=== PATIENT | female | born 1990 | race African-American/Black ===

== ENCOUNTER 2018-04-03 13:11 | Emergency (ER) | payer OTHER ==
[2018-04-03 13:35] LABS: BASOPHILS # (AUTO) 0.1 10^3/uL (0.0-0.1); BASOPHILS % (AUTO) 0.8 %; EOSINOPHILS # (AUTO) 0.1 10^3/uL (0.0-0.7); EOSINOPHILS % (AUTO) 1.1 %; HGB - HEMOGLOBIN 12.3 g/dL (12.0-16.0); MEAN CORPUSCULAR HEMOGLOBIN 30.1 pg (27.0-31.0); MEAN CORPUSCULAR HGB CONC 33.1 g/dL (32.0-36.0); MEAN CORPUSCULAR VOLUME 90.8 fL (81.0-99.0); MEAN PLATELET VOLUME 7.4 fL (7.9-10.8); MONOCYTES # (AUTO) 0.6 10^3/uL (0.0-1.0); MONOCYTES % (AUTO) 7.3 %; NEUTROPHILS # (AUTO) 5.6 10^3/uL (1.5-6.6); NEUTROPHILS % (AUTO) 66.8 %; PLT - PLATELET COUNT 323 10^3/uL (130-450); RED CELL DISTRIBUTION WIDTH 13.5 % (12.0-15.0); WHITE BLOOD COUNT 8.4 x10^3/uL (4.8-10.8)
[2018-04-03 13:47] LABS: ALBUMIN 4.2 g/dL (3.2-5.5); ALBUMIN/GLOBULIN RATIO 1.3 (1.0-2.2); BILIRUBIN,TOTAL 0.9 mg/dL (0.2-1.0); CALCIUM 9.1 mg/dL (8.5-10.3); CREATININE 0.6 mg/dL (0.4-1.0); TOTAL PROTEIN 7.5 g/dL (6.7-8.2)
--- NOTE | 2018-04-03 13:53 | ED Physician Documentation ---
PD HPI SYNCOPE - Stated complaint Stated Complaint: NEAR SYNCOPE - Chief complaint Chief Complaint: Neuro - History obtained from History obtained from: Patient - History of Present Illness Witnessed: Witnessed Timing - onset: Today Duration: Minutes (she had been having pelvic pains for few weeks. Had pain today and was feeling lightheaded, felt she was going to faint. Had nausea and worse pain in pelvic area.) Preceding symptoms: Other (pelvic pain, on the right) Associated symptoms: Nausea / vomiting, Abdominal pain. No: Headache, Chest pain Contributing factors: Noxious stimulae. No: Recent med change, Decreased PO intake, Emotional upset Injury occurred: No: Fell, Head injury, Neck injury Similar symptoms before: No diagnosis (has been having pelvic pain, with Dx possibly of endometriosis, but has not had scope. Is on Merina IUD put in about 3-4 months ago.) Review of Systems Constitutional: denies: Fever, Chills, Myalgias Nose: denies: Rhinorrhea / runny nose, Congestion Throat: denies: Sore throat Cardiac: denies: Chest pain / pressure, Palpitations Respiratory: denies: Dyspnea, Cough GI: reports: Abdominal Pain, Nausea. denies: Vomiting, Constipation, Diarrhea, Bloody / black stool : reports: Irregular menses (just spotting at times since IUD). denies: Dysuria, Frequency, Discharge Neurologic: reports: Generalized weakness, Near syncope. 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 REMELT: Endometriosis - Past Surgical History Past Surgical History: Yes HEENT: Tonsil/Adenoidectomy - Present Medications Home Medications: Ambulatory Orders Medication Instructions Recorded Confirmed Naproxen 375 mg PO BID #20 tablet 04/03/18 Ondansetron Odt [Zofran] 4 mg TL Q6H PRN #15 tablet 04/03/18 - Allergies Allergies/Adverse Reactions: Allergies Allergy/AdvReac Type Severity Reaction Status Date / Time sulfamethoxazole Allergy Hives Verified 04/03/18 13:21 [From ] trimethoprim [From ] Allergy Hives Verified 04/03/18 13:21 - Social History Does the pt smoke?: No Smoking Status: Never smoker Does the pt drink ETOH?: Yes Does the pt have substance abuse?: No - Immunizations Immunizations are current?: Yes PD ED PE NORMAL - Vitals Vital signs reviewed: Yes - General General: Alert and oriented X 3, Well developed/nourished - HEENT HEENT: Pharynx benign - Neck Neck: Supple, no meningeal sign, No adenopathy - Cardiac Cardiac: RRR, No murmur - Respiratory Respiratory: Clear bilaterally - Abdomen Abdomen: Normal bowel sounds, Soft, Non distended, No organomegaly, Other ( tender right lower abd/suprapubic area with local guarding. No percussion nor rebound. ) - Female Female : Deferred - Rectal Rectal: Deferred - Derm Derm: Normal color, Warm and dry - Extremities Extremities: No deformity, No tenderness to palpate, No edema, No calf tenderness / cord - Neuro Neuro: Alert and oriented X 3, No motor deficit, Normal speech Results - Vitals Vitals: Vital Signs - 24 hr 04/03/18 04/03/18 13:18 16:17 Temperature 36.4 C L Heart Rate 66 62 Respiratory 15 22 Rate Blood Pressure 132/84 H 106/69 O2 Saturation 100 100 Oxygen O2 Source Room air - EKG (time done) 13:31 Rate: Rate (enter#) (68) Rhythm: NSR [place]: Normal Intervals: Normal [place] QRS: Normal Ischemia: Normal ST segments. No: ST elevation c/w ischemia, ST depression - Labs Labs: Laboratory Tests 04/03/18 04/03/18 04/03/18 13:32 13:32 13:32 WBC 8.4 RBC 4.10 L Hgb 12.3 Hct 37.2 MCV 90.8 MCH 30.1 MCHC 33.1 RDW 13.5 Plt Count 323 MPV 7.4 L Neut # (Auto) 5.6 Lymph # (Auto) 2.0 [place] # (Auto) 0.6 Eos # (Auto) 0.1 Baso # (Auto) 0.1 Absolute Nucleated RBC 0.00 Nucleated RBC % 0.0 ESR Sodium 136 Potassium 3.6 Chloride 104 Carbon Dioxide 27 Anion Gap 5.0 L BUN 12 Creatinine 0.6 Estimated GFR (MDRD) 143 Glucose 85 Calcium 9.1 Total Bilirubin 0.9 AST 15 ALT 18 Alkaline Phosphatase 55 Total Protein 7.5 Albumin 4.2 Globulin 3.3 Albumin/Globulin Ratio 1.3 Lipase 28 TSH 0.59 Urine Color Urine Clarity Urine pH Ur Specific [place] Urine Protein Urine Glucose (UA) Urine Ketones Urine Occult Blood Urine Nitrite Urine Bilirubin Urine Urobilinogen Ur Leukocyte Esterase Ur Microscopic Review Urine Culture Comments Urine HCG, Qual 04/03/18 04/03/18 04/03/18 13:32 13:38 13:38 WBC RBC Hgb Hct MCV MCH MCHC RDW Plt Count MPV Neut # (Auto) Lymph # (Auto) [place] # (Auto) Eos # (Auto) Baso # (Auto) Absolute Nucleated RBC Nucleated RBC % ESR 10 Sodium Potassium Chloride Carbon Dioxide Anion Gap BUN Creatinine Estimated GFR (MDRD) Glucose Calcium Total Bilirubin AST ALT Alkaline Phosphatase Total Protein Albumin Globulin Albumin/Globulin Ratio Lipase TSH Urine Color YELLOW Urine Clarity CLEAR Urine pH 6.0 Ur Specific [place] 1.010 1.010 Urine Protein NEGATIVE Urine Glucose (UA) NEGATIVE Urine Ketones NEGATIVE Urine Occult Blood NEGATIVE Urine Nitrite NEGATIVE Urine Bilirubin NEGATIVE Urine Urobilinogen 0.2 (NORMAL) Ur Leukocyte Esterase NEGATIVE Ur Microscopic Review NOT INDICATED Urine Culture Comments NOT INDICATED Urine HCG, Qual NEGATIVE - Rads (name of study) pelvic U/S Radiology: Prelim report reviewed (2.5 cm cyst on left. physiologic free fluid. No significant findings. ) PD MEDICAL DECISION MAKING - ED course Complexity details: reviewed results, considered differential (given her pain pelvic and near syncope this morning, I am cocnered about bleeding. She is not . Will get U/S to eval for free fluid. Also having pelvic pain generally , so the U/S will be useful evaluation for that as well, though would not be as urgent reason.), d/w patient - Sepsis Event Vital Signs: Vital Signs - 24 hr 04/03/18 04/03/18 13:18 16:17 Temperature 36.4 C L Heart Rate 66 62 Respiratory 15 22 Rate Blood Pressure 132/84 H 106/69 O2 Saturation 100 100 Oxygen O2 Source Room air Departure - Departure Disposition: 01 Home, Self Care Clinical Impression: Near syncope, Pelvic pain Condition: Stable Record reviewed to determine appropriate education?: Yes Instructions: ED Abdominal Pain Unkn Cause, ED Near Syncope Unkn Prescriptions: Naproxen 375 mg PO BID #20 tablet Ondansetron Odt [Zofran] 4 mg TL Q6H PRN #15 tablet PRN Reason: Nausea / Vomiting Comments: The lightheadedness and near fainting likely was a transient drop in blood pressure. This can be from illness or pain response. Your blood count and blood tests are okay. Your ultrasound shows the IUD to be in place. There is an incidental small cyst on the left. There is no signs of pelvic bleeding. Drink lots of fluids. Use some naproxen twice daily for the next 7-10 days to help with pains and cramps. Ondansetron if needed for nausea. Follow-up with your primary care. Discharge Date/Time: 04/03/18 18:39
[2018-04-03] MEDS ORDERED: IBUPROFEN 600 MG TABLET PO STA (14:13)
[2018-04-03 14:14] LABS: HCG UR QUAL NEGATIVE
[2018-04-03 14:21] LABS: BILIRUBIN,URINE NEGATIVE (NEGATIVE); CLARITY,URINE CLEAR (CLEAR); GLUCOSE, URINE (UA) NEGATIVE (NEGATIVE); KETONES,URINE (UA) NEGATIVE (NEGATIVE); LEUKOCYTE ESTERASE, URINE NEGATIVE (NEGATIVE); NITRITE,URINE NEGATIVE (NEGATIVE); OCCULT BLOOD,URINE NEGATIVE (NEGATIVE); PROTEIN,URINE NEGATIVE (NEGATIVE); UROBILINOGEN,URINE 0.2 (NORMAL) E.U./dL (NORMAL)
[2018-04-03 16:18] VITALS: BP 106/69
--- NOTE | 2018-04-03 18:10 | Ultrasound Report ---
Procedure Date: 04/03/2018 Accession Number: [id number] / [id number] Procedure: US - Pelvic w/Transvag+Doppler Ltd CPT Code: FULL RESULT: EXAM: PELVIC ULTRASOUND EXAM DATE: 04/03/2018 05:43 PM. CLINICAL HISTORY: Lower abd pain for few days. COMPARISON: None. TECHNIQUE: Realtime transabdominal pelvic scan performed to identify the uterus and adnexa and as an overview of other pelvic structures, followed by transvaginal scan to provide greater detail of the uterus and adnexa, with static image documentation. FINDINGS: Uterus: 10.5 x 10.0 x 7.0 cm, volume 384.4 cc. Retroverted position. Normal overall size and echotexture. Masses: None. Endometrium: 5 mm. IUD centrally within the uterine cavity. Cervix: Unremarkable. Right Ovary: 3.2 x 2.3 x 1.2 cm, volume 4.6 cc. Normal echotexture and blood flow. Left Ovary: 3.8 x 2.7 x 2.3 cm, volume 12.3 cc. There is a simple 2.5 cm cyst. Free Fluid: Small volume of fluid in the cul-de-sac considered physiologic. Other: None. IMPRESSION: 1. Physiologic 2.5 cm left ovarian cyst. 2. Normal, retroverted uterus noting satisfactory IUD placement. RADIA
== END 2018-04-03 18:39 | disposition home or self-care (01) ==
LOC: ED 13:11
DX: R55 Syncope and collapse (principal); R10.2 Pelvic and perineal pain; R11.2 Nausea with vomiting, unspecified; N83.202 Unspecified ovarian cyst, left side; Z97.5 Presence of (intrauterine) contraceptive device
CPT/HCPCS: 36415; 76830; 76856; 80053; 81003; 81025; 83690; 84443; 85025; 85651; 93005; 93976; 99283; 99284; A9270; 81001; 87086

== ENCOUNTER 2019-02-03 08:46 | Emergency (ER) | payer OTHER ==
[2019-02-03 08:54] VITALS: BP 130/75
--- NOTE | 2019-02-03 08:58 | ED Physician Documentation ---
PD HPI URI - Stated complaint Stated Complaint: FLU LIKE SX - Chief complaint Chief Complaint: General - History obtained from History obtained from: Patient - History of Present Illness Timing - onset: How many days ago (4) Timing duration: Days (4) Timing details: Gradual onset, Still present Associated symptoms: Fever, Ear pain, Nasal congestion, Rhinorrhea, Sore throat, Dry cough Contributing factors: Sick contact Improves by: Rest, Medication Similar symptoms before: Diagnosis (strep) Recently seen: Not recently seen - Additional information Additional information: 33-year-old female who has had her tonsils out more than 15 years ago has developed a sore throat fever congestion and ear pain over the past 4 days. Review of Systems Constitutional: reports: Fever Eyes: denies: Decreased vision Ears: reports: Ear pain Nose: reports: Rhinorrhea / runny nose, Congestion Throat: reports: Sore throat Cardiac: denies: Chest pain / pressure, Palpitations Respiratory: reports: Cough. 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 - Past Surgical History Past Surgical History: Yes HEENT: Tonsil/Adenoidectomy - Present Medications Home Medications: Ambulatory Orders Medication Instructions Recorded Confirmed Amox/Clav 875/125 [Augmentin] 1 each PO Q12H #20 tablet 02/03/19 - Allergies Allergies/Adverse Reactions: Allergies Allergy/AdvReac Type Severity Reaction Status Date / Time sulfamethoxazole Allergy Hives Verified 04/03/18 13:21 [From ] trimethoprim [From ] Allergy Hives Verified 02/03/19 08:54 - Social History Does the pt smoke?: No Smoking Status: Never smoker Does the pt drink ETOH?: Yes Does the pt have substance abuse?: No - Immunizations Immunizations are current?: Yes PD ED PE NORMAL - Vitals Vital signs reviewed: Yes (normal) - General General: Alert and oriented X 3, No acute distress, Well developed/nourished, Other (resonance to the phonation ) - HEENT HEENT: Atraumatic, PERRL, EOMI, Other (The left TM is inflamed with retained landmarks the right is much less involved. The pharynx is with erythema and swelling to the uvula. ) - Neck Neck: Supple, no meningeal sign, No bony TTP, Other (tender submandibular adenopathy bilat) - Cardiac Cardiac: RRR, No murmur - Respiratory Respiratory: No respiratory distress, Clear bilaterally - Abdomen Abdomen: Soft, Non tender - Back Back: No CVA TTP, No spinal TTP - Derm Derm: Normal color, Warm and dry, No rash - Extremities Extremities: No deformity, No edema - Neuro Neuro: Alert and oriented X 3, security sales consultant 2-12 intact, No motor deficit, No sensory deficit, Normal speech Eye Opening: Spontaneous Motor: Obeys Commands Verbal: Oriented GCS Score: 15 - Psych Psych: Normal mood, Normal affect Results - Vitals Vitals: Vital Signs - 24 hr 02/03/19 08:53 Temperature 36.4 C L Heart Rate 67 Respiratory 18 Rate Blood Pressure 130/75 O2 Saturation 99 Oxygen O2 Source Room air - Labs Labs: Laboratory Tests 02/03/19 09:01 Group A Strep Rapid Negative PD MEDICAL DECISION MAKING - ED course Complexity details: considered differential, d/w patient ED course: 29 y/o female with sore throat and otitis is given decadron and we will start her on some augmentin. Departure - Departure Disposition: 01 Home, Self Care Clinical Impression: Otitis media Qualifiers: Otitis media type: suppurative Chronicity: acute Laterality: left Recurrence: not specified as recurrent Spontaneous tympanic membrane rupture: without spontaneous rupture Qualified Code(s): H66.002 - Acute suppurative otitis media without spontaneous rupture of ear drum, left ear Condition: Stable Instructions: ED Otitis Media Acute Adult Follow-Up: [facility] [Provider Group] Prescriptions: Amox/Clav 875/125 [Augmentin] 1 each PO Q12H #20 tablet Discharge Date/Time: 02/03/19 09:42
[2019-02-03] MEDS ORDERED: DEXAMETHASONE 10 MG/ML VIAL PO STA (09:05)
[2019-02-03] MEDS ORDERED: CHERRY SYRUP 10 ML UDC PO ONE (09:05)
== END 2019-02-03 09:42 | disposition home or self-care (01) ==
LOC: ED 08:46
DX: H66.002 Acute suppurative otitis media without spontaneous rupture of ear drum, left ear (principal)
CPT/HCPCS: 87070; 87430; 99283; A9270

== ENCOUNTER 2019-07-11 08:38 | Outpatient (CLI) | payer OTHER ==
[2019-07-11 09:09] LABS: BASOPHILS % (AUTO) 0.6 %; EOSINOPHILS # (AUTO) 0.1 10^3/uL (0.0-0.7); LYMPHOCYTES # (AUTO) 1.8 10^3/uL (1.5-3.5); LYMPHOCYTES % (AUTO) 36.3 %; MEAN CORPUSCULAR HEMOGLOBIN 29.9 pg (27.0-31.0); MEAN CORPUSCULAR HGB CONC 33.2 g/dL (32.0-36.0); MEAN PLATELET VOLUME 9.7 fL (7.9-10.8); MONOCYTES # (AUTO) 0.4 10^3/uL (0.0-1.0); MONOCYTES % (AUTO) 8.4 %; NEUTROPHILS # (AUTO) 2.6 10^3/uL (1.5-6.6); NEUTROPHILS % (AUTO) 52.5 %; PLT - PLATELET COUNT 363 10^3/uL (130-450); RED BLOOD COUNT 4.01 10^6/uL (4.20-5.40); RED CELL DISTRIBUTION WIDTH 12.9 % (12.0-15.0)
[2019-07-11 09:43] LABS: HCG UR QUAL NEGATIVE
== END 2019-07-11 08:39 | disposition home or self-care (01) ==
LOC: LAB 08:38
PROVIDERS: ATTEND Obstetrics & Gynecology
DX: Z01.812 Encounter for preprocedural laboratory examination (principal); N80.9 Endometriosis, unspecified
CPT/HCPCS: 36415; 81025; 85025; 86900; 86901

== ENCOUNTER 2019-07-13 06:11 | Inpatient (IN) | payer OTHER ==
[2019-07-13] MEDS ORDERED: CEFAZOLIN SODIUM IN 0.9 % NACL 2 GM/100 ML BAG IV ONE (06:41)
[2019-07-13] MEDS ORDERED: ACETAMINOPHEN 1,000 MG/100 ML 100 ML IV ONE ×2 (06:43→18:36)
[2019-07-13] MEDS ORDERED: GABAPENTIN 400 MG CAPSULE ONE (06:43)
[2019-07-13] MEDS ORDERED: LACTATED RINGERS 1,000 ML IV ONE ×3 (06:48→12:57)
[2019-07-13 06:52] LABS: HCG UR QUAL NEGATIVE
[2019-07-13] MEDS ORDERED: BUPIVACAINE 0.25% PF 30 ML VIAL SUBQ ONE ×2 (08:05)
[2019-07-13] MEDS ORDERED: METHYLENE BLUE 0.5% 50 MG/10 ML AMPULE IV ONE (11:17)
[2019-07-13] MEDS: HYDROmorphone 1 MG/ML CARPUJECT ONE ×2 (12:40→12:50)
--- NOTE | 2019-07-13 12:45 | XRAY Report ---
Reason: MISSING RAYTEC Procedure Date: 07/13/2019 Accession Number: [id number] / [id number] Procedure: XR - Pelvis 1 View CPT Code: FULL RESULT: EXAM: PELVIS RADIOGRAPHY EXAM DATE: 07/13/2019 12:06 PM. CLINICAL HISTORY: MISSING RAYTEC. COMPARISON: None. TECHNIQUE: 1 view. FINDINGS: Bones: Normal. No fracture or bone lesion. Joints: The visualized hip, pubis symphysis, and sacroiliac joints are preserved. No subluxation. Soft Tissues: Left flank soft tissue emphysema. Left pelvic retroperitoneal emphysema. Possible Cruz catheter. IMPRESSION: No radiopaque foreign body RADIA
[2019-07-13] MEDS ORDERED: ONDANSETRON 4 MG/2 ML VIAL IVP PRN (14:43)
[2019-07-13] MEDS ORDERED: oxyCODONE 5 MG TABLET PO PRN (14:43)
[2019-07-13] MEDS ORDERED: HYDROmorphone 0.5 MG/0.5 ML SYRINGE IVP PRN (14:43)
[2019-07-13] MEDS: KETOROLAC 30 MG/ML VIAL IVP SCH ×2 (15:17→21:35)
[2019-07-13] MEDS: LACTATED RINGERS 1,000 ML IV SCH (15:18)
[2019-07-13] MEDS ORDERED: SODIUM CHLORIDE FLUSH 0.9% 10 ML SYRINGE IVP PRN (15:19)
[2019-07-13] MEDS: ACETAMINOPHEN 500 MG TABLET PO SCH ×2 (15:25→21:35)
[2019-07-13] MEDS: SODIUM CHLORIDE FLUSH 0.9% 10 ML SYRINGE IVP SCH (16:42)
[2019-07-13] MEDS ORDERED: MIDAZOLAM 2 MG/2 ML VIAL IVP ONE (18:36)
[2019-07-13] MEDS ORDERED: DEXAMETHASONE 4 MG/ML VIAL IVP ONE (18:36)
[2019-07-13] MEDS ORDERED: fentaNYL 250 MCG/5 ML VIAL IVP ONE (18:36)
[2019-07-13] MEDS ORDERED: HYDROmorphone 1 MG/ML CARPUJECT IVP ONE (18:36)
[2019-07-13] MEDS ORDERED: PROPOFOL 200 MG/20 ML VIAL IVP ONE (18:36)
[2019-07-13] MEDS ORDERED: ONDANSETRON 4 MG/2 ML VIAL IVP ONE (18:36)
[2019-07-13] MEDS ORDERED: ROCURONIUM 50 MG/5 ML VIAL IVP ONE (18:36)
[2019-07-13] MEDS ORDERED: LIDOCAINE-MPF 2% 5 ML VIAL IM ONE (18:36)
[2019-07-13] MEDS: DOCUSATE SODIUM 100 MG CAPSULE PO SCH (21:34)
[2019-07-14] MEDS: SODIUM CHLORIDE FLUSH 0.9% 10 ML SYRINGE IVP SCH ×2 (00:43→09:22)
[2019-07-14] MEDS: LACTATED RINGERS 1,000 ML IV SCH (00:43)
[2019-07-14] MEDS: ACETAMINOPHEN 500 MG TABLET PO SCH ×2 (03:05→09:21)
[2019-07-14] MEDS: KETOROLAC 30 MG/ML VIAL IVP SCH ×2 (03:06→09:22)
--- NOTE | 2019-07-14 07:09 | PROVIDER PROGRESS NOTE ---
Subjective - Prog Note Date Prog Note Date: 07/14/19 Prog Note Time: 07:10 - Subjective Subjective: Doing very well. Reports pain well controlled with toradol and tylenol overnight. Denies n/v. Tolerated regular diet last night. Ambulated x 1 without difficulty. Voiding to sanchez overnight. Not yet passing flatus. No acute concerns. Objective - Vital Signs/Intake & Output Vital Signs: Vital Signs x48h Temp Pulse Pulse Resp BP Pulse Ox 07/14/19 05:10 37 C 76 18 123/61 95 07/14/19 00:10 37.3 C 81 20 121/66 97 Intake & Output: Intake & Output 07/11/19 07/12/19 07/13/19 07/14/19 23:59 23:59 23:59 23:59 Intake Total 2530 1141.667 Output Total 3025 875 Balance -495 266.667 - Objective General Appearance: positive: No acute distress Abdomen: positive: No distention (Abdo: soft, appropriately tender without rebound or guarding. Port sites c/d/i, skin adhesive in place.), Tenderness - Lab Results Other Labs: Lab Results x24hrs 07/13/19 Range/Units 06:50 Blood Type O POSITIVE Antibody Screen NEGATIVE Assessment/Plan - Problem List (1) Postoperative state Impression: POD#1 from LAVH/BS/cystoscopy. Recovering well. VS wnl, UOP 1.7 ml/kg/h since midnight. Exam benign. Plan: -sanchez catheter out this AM, DTV in 4 hours -transition toradol to ibuprofen -home today if voiding spontaneously, ambulating, and pain continues to be well controlled
--- NOTE | 2019-07-14 07:16 | DISCHARGE SUMMARY ---
Discharge Summary Admit Date: 07/13/19 Discharge Date: 07/14/19 Discharging Provider: Camryn Cook Code Status: Attempt Resuscitation Condition at Discharge: Good Discharge Disposition: 01 Home, Self Care - DIAGNOSES Admission Diagnoses: chronic pelvic pain Discharge Diagnoses with Status of Each Condition: chronic pelvic pain, s/p hysterectomy - HPI History of Present Illness: Patient was admitted for planned hysterectomy due to chronic pelvic pain. - HOSPITAL COURSE Hospital Course: Patient underwent uncomplicated LAVH/BS/cystoscopy. On POD#1 her sanchez catheter was removed. She remained afebrile throughout her hospital stay. At the time of discharge, she was ambulating, voiding spontaneously, and pain was well controlled with oral medications. She was discharged home with close interval follow up. - ALLERGIES Allergies/Adverse Reactions: Allergies Allergy/AdvReac Type Severity Reaction Status Date / Time sulfamethoxazole Allergy Hives Verified 04/03/18 13:21 [From ] trimethoprim [From ] Allergy Hives Verified 02/03/19 08:54 - MEDICATIONS Home Medications: Ambulatory Orders Medication Instructions Recorded Confirmed Melatonin 1 mg PO QPM PRN 07/13/19 07/13/19 Norethindrone-E.estradiol-Iron 1 tab PO DAILY 07/13/19 07/13/19 [Junel Fe 1.5 mg-30 Mcg Tablet] - PHYSICAL EXAM AT DISCHARGE General Appearance: positive: No acute distress Abdomen: positive: No distention, Tenderness - QUALITY (Female Hip Fx Only) Was patient sent home on osteoporosis medication?: No - FOLLOW UP Follow Up: Follow up at [facility] with Dr. Cook as scheduled. - TIME SPENT Time Spent in Discharge (Minutes): 20
[2019-07-14 07:36] LABS: BASOPHILS % (AUTO) 0.2 %; EOSINOPHILS % (AUTO) 0.2 %; HGB - HEMOGLOBIN 9.4 g/dL (12.0-16.0); LYMPHOCYTES # (AUTO) 2.5 10^3/uL (1.5-3.5); LYMPHOCYTES % (AUTO) 28.2 %; MEAN CORPUSCULAR HEMOGLOBIN 29.4 pg (27.0-31.0); MEAN CORPUSCULAR HGB CONC 32.4 g/dL (32.0-36.0); MEAN CORPUSCULAR VOLUME 90.6 fL (81.0-99.0); MEAN PLATELET VOLUME 9.4 fL (7.9-10.8); MONOCYTES # (AUTO) 0.9 10^3/uL (0.0-1.0); MONOCYTES % (AUTO) 10.2 %; NEUTROPHILS # (AUTO) 5.4 10^3/uL (1.5-6.6); NEUTROPHILS % (AUTO) 60.7 %; PLT - PLATELET COUNT 309 10^3/uL (130-450); RED CELL DISTRIBUTION WIDTH 13.1 % (12.0-15.0); WHITE BLOOD COUNT 8.8 x10^3/uL (4.8-10.8)
[2019-07-14] MEDS: DOCUSATE SODIUM 100 MG CAPSULE PO SCH (09:21)
[2019-07-14 10:56] VITALS: BP 124/85
== END 2019-07-14 11:18 | disposition home or self-care (01) | DRG 743 ==
LOC: MS2 06:11
PROVIDERS: ADMIT Obstetrics & Gynecology; ATTEND Obstetrics & Gynecology
PROC: 0UT7FZZ Resection of Bilateral Fallopian Tubes, Via Natural or Artificial Opening With Percutaneous Endoscopic Assistance (ICD-10-PCS; 2019-07-13)
PROC: 0UT9FZZ Resection of Uterus, Via Natural or Artificial Opening With Percutaneous Endoscopic Assistance (ICD-10-PCS; principal; 2019-07-13 07:30)
DX: N80.3 Endometriosis of pelvic peritoneum (principal); Z87.42 Personal history of other diseases of the female genital tract
CPT/HCPCS: 36415; 72170; 81025; 85025; 86850; 86900; 86901; 88307; A9270; J0131; J0690; J1170; J3010; J7120; 85027

== ENCOUNTER 2020-06-22 15:27 | Emergency (ER) | payer OTHER ==
[2020-06-22 15:35] VITALS: BP 136/93
--- NOTE | 2020-06-22 15:47 | ED Physician Documentation ---
History of Present Illness - Stated complaint Stated Complaint: CP - Chief complaint Chief Complaint: Cardiac - Additonal information Additional information: 30-year-old female presents to the emergency department for evaluation of 3 days of left-sided chest pain. Chest pain began in the midsternal area gated to her left shoulder. The pain is worse when she takes a deep breath but she denies that it gets worse with any exertion. She has had no diaphoresis nausea or vomiting. She does have an extensive family history of coronary artery disease in parents and older siblings. No history of sudden cardiac under the age of 50. Patient is not a smoker. No history of high blood pressure or diabetes. She denies any unilateral leg swelling. She does not take control. She did have a hysterectomy approximately 1 year ago for severe endometriosis.No cough, no fevers. Review of Systems Nose: denies: Rhinorrhea / runny nose, Congestion Throat: denies: Oral lesions / sores, Swollen tonsils, Swallowed foreign body Cardiac: reports: Chest pain / pressure. denies: Palpitations, Pedal edema, Calf pain Respiratory: denies: Dyspnea, Cough, Hemoptysis, Wheezing GI: denies: Abdominal Pain, Abdominal Swelling, Nausea, Vomiting, Constipation, Diarrhea : denies: Dysuria, Frequency, Hesitancy Skin: denies: Rash, Lesions, Laceration (s) Musculoskeletal: denies: Neck pain, Back pain, Joint pain, Extremity swelling Neurologic: reports: Headache. 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 : None HEENT: Chronic vision loss Psych: None Musculoskeletal: None Derm: None - Past Surgical History Past Surgical History: Yes /GENERAL UTILITY WORKER: Other HEENT: Tonsil/Adenoidectomy - Present Medications Home Medications: Ambulatory Orders Medication Instructions Recorded Confirmed Melatonin 1 mg PO QPM PRN 07/13/19 07/13/19 Norethindrone-E.estradiol-Iron 1 tab PO DAILY 07/13/19 07/13/19 [ Fe 1.5 mg-30 Mcg Tablet] - Allergies Allergies/Adverse Reactions: Allergies Allergy/AdvReac Type Severity Reaction Status Date / Time sulfamethoxazole Allergy Hives Verified 06/22/20 15:35 [From ] trimethoprim [From ] Allergy Hives Verified 06/22/20 15:35 - Social History Does the pt smoke?: No Smoking Status: Never smoker Does the pt drink ETOH?: Yes Does the pt have substance abuse?: No - Immunizations Immunizations are current?: Yes PD ED PE NORMAL - General General: Alert and oriented X 3, No acute distress - HEENT HEENT: Atraumatic, EOMI - Neck Neck: Supple, no meningeal sign, No adenopathy, Thyroid normal - Cardiac Cardiac: RRR, No murmur, No gallop, Strong equal pulses (radila/pedal 2+ ) - Respiratory Respiratory: No respiratory distress, Clear bilaterally - Abdomen Abdomen: Normal bowel sounds, Soft, Non tender, Non distended - Back Back: No: No CVA TTP - Derm Derm: Normal color, Warm and dry, No rash - Extremities Extremities: No deformity, No tenderness to palpate, Normal ROM s pain - Neuro Neuro: Alert and oriented X 3, drug abuse technician 2-12 intact, No motor deficit, No sensory deficit, Normal speech Eye Opening: Spontaneous Motor: Obeys Commands Verbal: Oriented GCS Score: 15 Results - Vitals Vitals: Vital Signs - 24 hr 06/22/20 15:30 Temperature 36.9 C Heart Rate 92 Respiratory 14 Rate Blood Pressure 136/93 H O2 Saturation 100 Oxygen O2 Source Room air - EKG (time done) 1534 Rate: Rate (enter#) (85) Rhythm: NSR [place]: Normal Intervals: Normal [place] QRS: Normal Ischemia: Normal ST segments Compare to prior EKG: Old EKG unavailable Computer interpretation: Agree with computer - Labs Labs: Laboratory Tests 06/22/20 06/22/20 06/22/20 15:45 15:45 15:45 WBC 7.8 RBC 4.13 L Hgb 12.3 Hct 37.2 MCV 90.1 MCH 29.8 MCHC 33.1 RDW 12.9 Plt Count 372 MPV 9.0 Neut # (Auto) 4.4 Lymph # (Auto) 2.5 [place] # (Auto) 0.7 Eos # (Auto) 0.2 Baso # (Auto) 0.0 Absolute Nucleated RBC 0.00 Nucleated RBC % 0.0 Sodium 138 Potassium 3.6 Chloride 104 Carbon Dioxide 27 Anion Gap 7.0 BUN 14 Creatinine 0.6 Estimated GFR (MDRD) 141 Glucose 92 Calcium 9.2 Total Bilirubin 0.4 AST 13 ALT 17 Alkaline Phosphatase 79 Troponin I High Sens < 2.3 L Total Protein 8.2 Albumin 4.6 Globulin 3.6 Albumin/Globulin Ratio 1.3 Lipase 30 Urine Color Urine Clarity Urine pH Ur Specific [place] Urine Protein Urine Glucose (UA) Urine Ketones Urine Occult Blood Urine Nitrite Urine Bilirubin Urine Urobilinogen Ur Leukocyte Esterase Ur Microscopic Review Urine Culture Comments 06/22/20 15:50 WBC RBC Hgb Hct MCV MCH MCHC RDW Plt Count MPV Neut # (Auto) Lymph # (Auto) [place] # (Auto) Eos # (Auto) Baso # (Auto) Absolute Nucleated RBC Nucleated RBC % Sodium Potassium Chloride Carbon Dioxide Anion Gap BUN Creatinine Estimated GFR (MDRD) Glucose Calcium Total Bilirubin AST ALT Alkaline Phosphatase Troponin I High Sens Total Protein Albumin Globulin Albumin/Globulin Ratio Lipase Urine Color YELLOW Urine Clarity CLEAR Urine pH 6.0 Ur Specific [place] >=1.030 H Urine Protein NEGATIVE Urine Glucose (UA) NEGATIVE Urine Ketones NEGATIVE Urine Occult Blood NEGATIVE Urine Nitrite NEGATIVE Urine Bilirubin NEGATIVE Urine Urobilinogen 1 (NORMAL) Ur Leukocyte Esterase NEGATIVE Ur Microscopic Review NOT INDICATED Urine Culture Comments NOT INDICATED - Rads (name of study) CXR Radiology: Final report received (no acute cardiopulmonary process) PD MEDICAL DECISION MAKING - ED course Complexity details: reviewed results, considered differential, d/w patient ED course: 30-year-old female presents to the emergency department for evaluation of 3 days left-sided chest pain. On exam it is somewhat reproducible with deep palpation. She did express that it hurts somewhat to take a deep breath however by PERC and Wells criteria I do not have suspicion that this is a pulmonary embolus. Her EKG is nonischemic. High-sensitivity troponin is negative. Chest x-ray shows no focal opacities or findings of a pneumothorax. her exam is not c/w chf. At this time I have advised close observation and follow-up with her primary care doctor. She appears remarkably well with normal vital signs. Advised to return to the emergency department for dyspnea, leg swelling, syncope or if her symptoms fail to improve. Departure - Departure Disposition: 01 Home, Self Care Clinical Impression: Chest pain Qualifiers: Chest pain type: chest pain on breathing Qualified Code(s): R07.1 - Chest pain on breathing; R07.81 - Pleurodynia Condition: Stable Record reviewed to determine appropriate education?: Yes Instructions: ED Chest Pain NonCardiac Follow-Up: LEXUS BARONE MD [Primary Care Provider] - Comments: Today your chest x-ray, labs and EKG are all essentially normal. I would recomm end very close follow-up with your primary care doctor but at this time I do not feel that the cause of your pain is coming from your heart. If you feel that your symptoms are not improving, you are severely short of breath, you develop any fevers feel faint or have fainting episodes then please return immediately to the emergency department
[2020-06-22 15:51] LABS: BASOPHILS % (AUTO) 0.4 %; EOSINOPHILS # (AUTO) 0.2 10^3/uL (0.0-0.7); EOSINOPHILS % (AUTO) 2.1 %; HGB - HEMOGLOBIN 12.3 g/dL (12.0-16.0); LYMPHOCYTES # (AUTO) 2.5 10^3/uL (1.5-3.5); LYMPHOCYTES % (AUTO) 31.6 %; MEAN CORPUSCULAR HEMOGLOBIN 29.8 pg (27.0-31.0); MEAN CORPUSCULAR HGB CONC 33.1 g/dL (32.0-36.0); MEAN CORPUSCULAR VOLUME 90.1 fL (81.0-99.0); MONOCYTES # (AUTO) 0.7 10^3/uL (0.0-1.0); MONOCYTES % (AUTO) 8.6 %; NEUTROPHILS # (AUTO) 4.4 10^3/uL (1.5-6.6); PLT - PLATELET COUNT 372 10^3/uL (130-450); RED BLOOD COUNT 4.13 10^6/uL (4.20-5.40); RED CELL DISTRIBUTION WIDTH 12.9 % (12.0-15.0); WHITE BLOOD COUNT 7.8 x10^3/uL (4.8-10.8)
--- NOTE | 2020-06-22 16:02 | XRAY Report ---
PROCEDURE: Chest 1 View X-Ray INDICATIONS: Chest Pain TECHNIQUE: One view of the chest was acquired. COMPARISON: None FINDINGS: Surgical changes and devices: None. Lungs and pleura: No pleural effusions or pneumothorax. Lungs are clear. Mediastinum: Mediastinal contours appear normal. Heart size is normal. Bones and chest wall: No suspicious bony lesions. Overlying soft tissues appear unremarkable. IMPRESSION: Normal chest radiograph. Reviewed by: Ab Steward MD on 06/22/2020 4:00 PM PDT Approved by: Ab Steward MD on 06/22/2020 4:00 PM PDT Station ID: [id number]
[2020-06-22 16:04] LABS: ALBUMIN 4.6 g/dL (3.2-5.5); ALBUMIN/GLOBULIN RATIO 1.3 (1.0-2.2); BILIRUBIN,TOTAL 0.4 mg/dL (0.2-1.0); CALCIUM 9.2 mg/dL (8.5-10.3); CREATININE 0.6 mg/dL (0.4-1.0); TOTAL PROTEIN 8.2 g/dL (6.7-8.2)
[2020-06-22 16:05] LABS: BILIRUBIN,URINE NEGATIVE (NEGATIVE); GLUCOSE, URINE (UA) NEGATIVE (NEGATIVE); KETONES,URINE (UA) NEGATIVE (NEGATIVE); LEUKOCYTE ESTERASE, URINE NEGATIVE (NEGATIVE); NITRITE,URINE NEGATIVE (NEGATIVE); OCCULT BLOOD,URINE NEGATIVE (NEGATIVE); PROTEIN,URINE NEGATIVE (NEGATIVE); UROBILINOGEN,URINE 1 (NORMAL) E.U./dL (NORMAL)
[2020-06-22 16:08] LABS: CLARITY,URINE CLEAR (CLEAR)
== END 2020-06-22 16:57 | disposition home or self-care (01) ==
LOC: ED 15:27
DX: R07.1 Chest pain on breathing (principal); R07.81 Pleurodynia; Z82.49 Family history of ischemic heart disease and other diseases of the circulatory system
CPT/HCPCS: 36415; 71045; 80053; 81001; 81003; 83690; 84484; 85025; 87086; 93005; 99284

== ENCOUNTER 2020-07-06 14:16 | Emergency (ER) | payer OTHER ==
[2020-07-06 14:47] LABS: BASOPHILS % (AUTO) 0.5 %; EOSINOPHILS # (AUTO) 0.2 10^3/uL (0.0-0.7); EOSINOPHILS % (AUTO) 2.6 %; HGB - HEMOGLOBIN 11.9 g/dL (12.0-16.0); LYMPHOCYTES # (AUTO) 2.6 10^3/uL (1.5-3.5); LYMPHOCYTES % (AUTO) 33.5 %; MEAN CORPUSCULAR HEMOGLOBIN 30.1 pg (27.0-31.0); MEAN CORPUSCULAR HGB CONC 33.1 g/dL (32.0-36.0); MEAN CORPUSCULAR VOLUME 91.1 fL (81.0-99.0); MEAN PLATELET VOLUME 9.1 fL (7.9-10.8); MONOCYTES # (AUTO) 0.8 10^3/uL (0.0-1.0); NEUTROPHILS # (AUTO) 4.1 10^3/uL (1.5-6.6); NEUTROPHILS % (AUTO) 53.1 %; PLT - PLATELET COUNT 368 10^3/uL (130-450); RED BLOOD COUNT 3.95 10^6/uL (4.20-5.40); RED CELL DISTRIBUTION WIDTH 12.9 % (12.0-15.0); WHITE BLOOD COUNT 7.7 x10^3/uL (4.8-10.8)
[2020-07-06 14:59] LABS: ALBUMIN 4.2 g/dL (3.2-5.5); ALBUMIN/GLOBULIN RATIO 1.2 (1.0-2.2); BILIRUBIN,TOTAL 0.4 mg/dL (0.2-1.0); CALCIUM 9.4 mg/dL (8.5-10.3); CREATININE 0.8 mg/dL (0.4-1.0); TOTAL PROTEIN 7.6 g/dL (6.7-8.2)
[2020-07-06] MEDS ORDERED: KETOROLAC 30 MG/ML VIAL IM STA (15:48)
--- NOTE | 2020-07-06 15:51 | ED Physician Documentation ---
History of Present Illness - Stated complaint Stated Complaint: CHEST TIGHTNESS/DIZZY - Chief complaint Chief Complaint: Cardiac - Additonal information Additional information: [age]-year-old female presents the emergency department for chief complaint of chest pain. She Anil describes it as substernal and pressure-like but nonradiating. She was seen for similar on 22 June with a negative work-up. She reports that since being seen she is continued to intermittently have the pain. It is not exertional. She has had no nausea or vomiting. She is not a smoker. She does not have any history of high blood pressure. There is however a significant family history of coronary artery disease in her parents. This pain is easily reproducible with light palpation on the anterior chest. Her EKG today is sinus rhythm without any ischemic changes and is unchanged from the earlier visit. She denies fevers shortness of breath cough leg swelling, recent travel, any history of DVT or cancer Review of Systems Constitutional: denies: Fever, Chills Eyes: denies: Loss of vision Ears: reports: Reviewed and negative Nose: reports: Reviewed and negative Throat: reports: Reviewed and negative Cardiac: reports: Chest pain / pressure. 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: Endometriosis : None HEENT: Chronic vision loss Psych: None Musculoskeletal: None Derm: None - Past Surgical History Past Surgical History: Yes /ENVIRONMENTAL SERVICES FLOOR TECH: Other HEENT: Tonsil/Adenoidectomy - Present Medications Home Medications: Ambulatory Orders Medication Instructions Recorded Confirmed Melatonin 1 mg PO QPM PRN 07/13/19 07/13/19 Norethindrone-E.estradiol-Iron 1 tab PO DAILY 07/13/19 07/13/19 [June Fe 1.5 mg-30 Mcg Tablet] Ibuprofen [Motrin] 600 mg PO Q6H PRN #30 tab 07/06/20 - Allergies Allergies/Adverse Reactions: Allergies Allergy/AdvReac Type Severity Reaction Status Date / Time sulfamethoxazole Allergy Hives Verified 07/06/20 14:19 [From ] trimethoprim [From ] Allergy Hives Verified 07/06/20 14:19 - Social History Does the pt smoke?: No Smoking Status: Never smoker Does the pt drink ETOH?: Yes Does the pt have substance abuse?: No - Immunizations Immunizations are current?: Yes PD ED PE NORMAL - General General: Alert and oriented X 3, No acute distress, Well developed/nourished - HEENT HEENT: PERRL, Ears normal - Neck Neck: Supple, no meningeal sign, No bony TTP, No adenopathy - Cardiac Cardiac: RRR, No murmur, No gallop, No rub, Strong equal pulses, Other (pain reproduced with palpation over hte anterior chest and sternum) - Respiratory Respiratory: No respiratory distress - Abdomen Abdomen: Normal bowel sounds, Soft, Non tender, Non distended - Back Back: No CVA TTP - Derm Derm: Normal color, Warm and dry, No rash - Extremities Extremities: No deformity - Neuro Neuro: Alert and oriented X 3, 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, No motor deficit Eye Opening: Spontaneous Motor: Obeys Commands Verbal: Oriented GCS Score: 15 Results - Vitals Vitals: Vital Signs - 24 hr 07/06/20 07/06/20 14:19 15:41 Temperature 36.9 C 36.8 C Heart Rate 78 67 Respiratory 16 20 Rate Blood Pressure 152/89 H 122/85 H O2 Saturation 100 100 Oxygen O2 Source Room air - EKG (time done) 1426 Rate: Rate (enter#) (73) Rhythm: NSR [place]: Normal Intervals: Normal ND QRS: Normal Ischemia: Normal ST segments Compare to prior EKG: Unchanged from prior EKG Computer interpretation: Agree with computer - Labs Labs: Laboratory Tests 07/06/20 07/06/20 07/06/20 14:40 14:40 14:40 WBC 7.7 RBC 3.95 L Hgb 11.9 L Hct 36.0 L MCV 91.1 MCH 30.1 MCHC 33.1 RDW 12.9 Plt Count 368 MPV 9.1 Neut # (Auto) 4.1 Lymph # (Auto) 2.6 Davidson # (Auto) 0.8 Eos # (Auto) 0.2 Baso # (Auto) 0.0 Absolute Nucleated RBC 0.00 Nucleated RBC % 0.0 Sodium 137 Potassium 4.0 Chloride 102 Carbon Dioxide 26 Anion Gap 9.0 BUN 12 Creatinine 0.8 Estimated GFR (MDRD) 101 Glucose 87 Calcium 9.4 Total Bilirubin 0.4 AST 13 ALT 17 Alkaline Phosphatase 73 Troponin I High Sens < 2.3 L Total Protein 7.6 Albumin 4.2 Globulin 3.4 Albumin/Globulin Ratio 1.2 Lipase 29 PD MEDICAL DECISION MAKING - ED course Complexity details: reviewed old records, reviewed results, re-evaluated patient, considered differential, d/w patient ED course: 30-year-old female 3 presents to the emergency department for evaluation of substernal chest pain. It is reproducible on exam. I am highly suspicious that she has costochondritis. Her EKG today is normal sinus rhythm without ischemic changes and is unchanged from the EKG completed on 22 June. Her high- sensitivity troponin today is also negative. She is Wells and PERC criteria negative therefore I have no suspicion for PE. Recent chest x-ray was also unremarkable. I doubt pneumonia as she has no cough or fever. I will recommend that she take NSAID medication over the course of the next few days. She does have follow-up scheduled with her primary care doctor on Saturday. Emergent return precautions were discussed Departure - Departure Disposition: Home, Self Care Clinical Impression: Chest pain Qualifiers: Chest pain type: intercostal pain Qualified Code(s): R07.82 - Intercostal pain Condition: Stable Record reviewed to determine appropriate education?: Yes Instructions: ED Chest Pain Costochondritis Follow-Up: LEXUS BARONE MD [Primary Care Provider] - Prescriptions: Ibuprofen [Motrin] 600 mg PO Q6H PRN #30 tab PRN Reason: Pain Comments: Ksenia your EKG and labs today are all essentially unchanged and unremarkable. I do feel that the pain in your chest is reproducible which likely means that you have costochondritis or inflammation of the muscles between your ribs. I would like you to take the ibuprofen 2-3 times a day with food for discomfort. Please continue to follow-up with your primary care doctor on Saturday as scheduled.
[2020-07-06] MEDS ORDERED: LIDOCAINE VISCOUS 2% 15 ML UDC MM STA (16:02)
[2020-07-06] MEDS ORDERED: MAG HYDROX/AL HYDROX/SIMETH 30 ML UDC PO STA (16:02)
[2020-07-06 16:19] VITALS: BP 136/81
== END 2020-07-06 16:30 | disposition home or self-care (01) ==
LOC: ED 14:16
DX: R07.82 Intercostal pain (principal)
CPT/HCPCS: 36415; 80053; 83690; 84484; 85025; 93005; 96372; 99284; A9270

== ENCOUNTER 2020-11-30 08:13 | Outpatient (CLI) | payer OTHER ==
--- NOTE | 2020-12-01 09:48 | Mammography Report ---
BILATERAL DIGITAL DIAGNOSTIC MAMMOGRAM 3D/2D: 11/30/2020 CLINICAL: Baseline exam. Intermittent pain in bilateral breasts. No prior exams were available for comparison. The tissue of both breasts is extremely dense, which l owers the sensitivity of mammography. There is incidental note made of a 7 mm oval equal density focal asymmetry with an obscured and micro lobulated margin in the right breast at 3 o'clock anterior depth. This is unlikely to explain the pa tient's symptoms. No other significant masses, calcifications, or other findings are seen in either breast. Specifical ly, no finding to explain the patient's bilateral diffuse breast pain. IMPRESSION: INCOMPLETE: NEEDS ADDITIONAL IMAGING EVALUATION There is no abnormality seen in either breast to correspond with the diffuse pain. The 7 mm focal asymmetry in the right breast is indeterminate. An ultrasound is recommended. This w as performed immediately following this exam. This exam was interpreted at Station ID: [id number]. NOTE: For mammograms, a report in lay terms will be sent to the patient. Approximately 15% of breast malignancies will not be visualized mammographically. In the management of a palpable breast mass, a negative mammogram must not discourage biopsy of a clinically suspicious lesion. Electronically Signed By: Kimberley blanchard/:11/30/2020 09:06:58 ACR BI-RADS Category 0: Incomplete 3340F PARENCHYMAL PATTERN: (VD) - The breast(s) demonstrate(s) extremely dense parenchyma, limiting the sen sitivity of mammography. BI-RADS CATEGORY: (0) - 0 Ultrasound [id number] Immediate follow-up LATERALITY: (B)
--- NOTE | 2020-12-01 09:48 | Ultrasound Report ---
LIMITED ULTRASOUND OF RIGHT BREAST: 11/30/2020 CLINICAL: Intermitten pain in bilateral breasts. Evaluate an asymmetry in the right breast. No prior exams were available for comparison. Ultrasound of the right breast 3 o'clock region was performed. There is a 0.8 cm x 0.5 cm x 0.3 cm cluster of irregular micro cysts in the right breast at 3 o'clock anterior depth 3 cm from the nipple with the long axis parallel to the skin. This cluster of irregu lar micro cysts displays no posterior acoustic shadowing or enhancement. Color flow imaging demonstr ates that there is an adjacent vascularity. This correlates with mammography findings. No finding to explain the patient's pain. IMPRESSION: PROBABLY BENIGN No sonographic finding to explain patient's breast pain. The 0.8 cm cluster of micro cysts in the right breast has a differential diagnosis of apocrine metapl melita or a complicated cyst and is probably benign. A follow-up right ultrasound in 6 months is recommended to demonstrate stability. Findings and recommendations were conveyed to the patient at time of exam. This exam was interpreted at Station ID: [id number]. Electronically Signed By: Kimberley blanchard/:11/30/2020 09:45:10 Ultrasound BI-RADS: 3 Probably benign BI-RADS CATEGORY: (3) - 3 Ultrasound [id number] 6 month follow-up LATERALITY: (R)
== END 2020-11-30 08:14 | disposition home or self-care (01) ==
LOC: DI 08:13
PROVIDERS: ATTEND Nurse Practitioner Family
DX: N64.4 Mastodynia (principal); N60.11 Diffuse cystic mastopathy of right breast